=== PATIENT | male | born 1960 | race Caucasian/White ===

== ENCOUNTER 2018-11-29 18:18 | Inpatient (IN) | payer OTHER ==
[~2018-11-29] VITALS: Ht 170.2 cm; Wt 76.6 kg
[2018-11-29 18:45] LABS: GLUCOSE,POINT OF CARE 256 MG/DL (70-110)
[2018-11-29] MEDS ORDERED: DSSL PO (18:48)
[2018-11-29] MEDS ORDERED: AMLO2.5T4 PO (18:48)
[2018-11-29 19:43] LABS: EOSINOPHILS % (AUTO) 4.7 % (1.0-6.0); HEMATOCRIT 37.1 % (41-53); LYMPHOCYTES # (AUTO) 0.7 K/uL (1.0-4.8); LYMPHOCYTES % (AUTO) 7.7 % (22.0-44.0); MEAN CORPUSCULAR HEMOGLOBIN 31.2 pg (26.0-34.0); MEAN CORPUSCULAR HGB CONC 32.3 G/dL (31.0-37.0); MEAN CORPUSCULAR VOLUME 97 fL (80-100); MONOCYTES # (AUTO) 0.8 K/uL (0.1-1.0); MONOCYTES % (AUTO) 8.1 % (2.0-9.0); NEUTROPHILS # (AUTO) 7.4 K/uL (1.8-7.7); NEUTROPHILS % (AUTO) 78.5 % (40.0-70.0); PLATELET COUNT (AUTO) 315 K/uL (150-450); RED BLOOD CELL COUNT(AUTO) 3.84 MIL/uL (4.50-5.90); RED CELL DISTRIBUTION WIDTH 14.6 % (11.5-14.5)
[2018-11-29 19:45] LABS: APPEARANCE,URINE CLEAR (CLEAR); BILIRUBIN,URINE NEGATIVE (NEGATIVE); GLUCOSE, URINE (UA) 250 mg/dL (NEGATIVE); KETONES,URINE NEGATIVE (NEGATIVE); LEUKOCYTE ESTERASE ,URINE NEGATIVE (NEGATIVE); NITRATE,URINE NEGATIVE (NEGATIVE); OCCULT BLOOD,URINE SMALL (NEGATIVE); PROTEIN,URINE SEE CONFIRM (NEGATIVE); UROBILINOGEN,URINE 0.2 mg/dL (<=1.0)
[2018-11-29 19:54] LABS: ANION GAP 7 mmol/L (8-16); CALCIUM, TOTAL 9.7 mg/dL (8.8-10.5); CARBON DIOXIDE 35 mmol/L (22-29); CHLORIDE 95 mmol/L (98-107); CREATININE 9.67 mg/dL (0.60-1.30); GLOMERULAR FILTR. RATE CALC 6 mL/min (>60); GLUCOSE,RANDOM 224 mg/dL (70-110); POTASSIUM 3.4 mmol/L (3.5-5.1); SODIUM SERUM 137 mmol/L (136-145); UREA NITROGEN, BLOOD 41 mg/dL (7-18)
[2018-11-29 20:00] LABS: B-TYPE NATRIURETIC PEPTIDE > 5000 pg/mL (0-100)
[2018-11-29 20:06] LABS: ALANINE AMINOTRANSFERASE 39 U/L (12-78); ALBUMIN 3.7 g/dL (3.4-5.0); ALKALINE PHOSPHATASE 91 U/L (46-116); ASPARTATE AMINOTRANSFERASE 26 U/L (15-37); BILIRUBIN,TOTAL 0.7 mg/dL (0.1-1.0); TOTAL PROTEIN, SERUM 7.6 g/dL (6.4-8.2)
[2018-11-29 20:14] LABS: SULFOSALICYLIC ACID,URINE 4+ (Negative)
[2018-11-29 20:15] LABS: BACTERIA,URINE None Seen /HPF (None Seen); RBC,URINE 0-2 /HPF (0-2); SQUAMOUS EPITHELIAL CELL,UR Rare /LPF (None Seen); WBC,URINE 0-2 /HPF (0-5)
[2018-11-29] MEDS ORDERED: ACETAMINOPHEN 325 MG TABLET PO PRN ×2 (21:30→23:30)
[2018-11-29] MEDS ORDERED: ONDANSETRON HCL 4 MG/2 ML VIAL IVP PRN ×2 (21:30→23:30)
[2018-11-29] MEDS ORDERED: 0.9% SODIUM CHLORIDE 10 ML SYRINGE IVP PRN ×2 (21:30→23:30)
[2018-11-29] MEDS ORDERED: DEXTROSE 50%-WATER 25 GM/50 ML SYRINGE IVP PRN (23:30)
[2018-11-29] MEDS ORDERED: ZOLPIDEM TARTRATE 5 MG TABLET PO PRN (23:30)
[2018-11-30] VITALS (7 sets, daily range): BP systolic 145–160; BP diastolic 77–92
[2018-11-30 06:08] LABS: BASOPHILS % (AUTO) 1.3 % (0.0-2.0); EOSINOPHILS % (AUTO) 10.2 % (1.0-6.0); HEMATOCRIT 30.4 % (41-53); HEMOGLOBIN 10.4 g/dL (13.5-17.5); LYMPHOCYTES # (AUTO) 0.8 K/uL (1.0-4.8); LYMPHOCYTES % (AUTO) 11.6 % (22.0-44.0); MEAN CORPUSCULAR HEMOGLOBIN 32.4 pg (26.0-34.0); MEAN CORPUSCULAR VOLUME 95 fL (80-100); MONOCYTES # (AUTO) 0.6 K/uL (0.1-1.0); MONOCYTES % (AUTO) 8.8 % (2.0-9.0); NEUTROPHILS # (AUTO) 4.7 K/uL (1.8-7.7); NEUTROPHILS % (AUTO) 68.1 % (40.0-70.0); PLATELET COUNT (AUTO) 259 K/uL (150-450); RED CELL DISTRIBUTION WIDTH 14.5 % (11.5-14.5)
[2018-11-30 06:29] LABS: CREATININE 10.42 mg/dL (0.60-1.30); MAGNESIUM 2.6 mg/dL (1.80-2.40); PHOSPHORUS 6.5 mg/dL (2.5-4.9); POTASSIUM 3.5 mmol/L (3.5-5.1)
[2018-11-30 06:35] LABS: GLUCOMETER DEV NAME(LOC) 6N.2; GLUCOSE,POINT OF CARE 66 MG/DL (70-110)
[2018-11-30] MEDS: INSULIN LISPRO 100 UNITS/ML SQ PRN ×3 (06:58→18:01)
[2018-11-30 07:45] LABS: GLUCOMETER DEV NAME(LOC) 6N.2; GLUCOSE,POINT OF CARE 179 MG/DL (70-110)
[2018-11-30] MEDS ORDERED: AmLODIPine BESYLATE 2.5 MG TABLET PO SCH (09:00)
[2018-11-30] MEDS: PANTOPRAZOLE SODIUM 40 MG DR TABLET PO SCH (09:42)
[2018-11-30 12:30] LABS: GLUCOMETER DEV NAME(LOC) 6N.2; GLUCOSE,POINT OF CARE 156 MG/DL (70-110)
[2018-11-30] MEDS ORDERED: DSS100 PO (12:55)
[2018-11-30] MEDS: VITAMIN B COMP/VIT C/FOLIC ACID CAPSULE PO SCH (18:01)
[2018-11-30] MEDS: CALCIUM ACETATE 667 MG CAPSULE PO SCH (18:01)
[2018-11-30 18:12] LABS: GLUCOMETER DEV NAME(LOC) 6N.2; GLUCOSE,POINT OF CARE 92 MG/DL (70-110)
[2018-11-30 21:20] LABS: GLUCOMETER DEV NAME(LOC) 6N.2; GLUCOSE,POINT OF CARE 134 MG/DL (70-110)
[2018-12-01 05:05] VITALS: BP 148/79
[2018-12-01 07:25] VITALS: BP 155/84
[2018-12-01] MEDS: PANTOPRAZOLE SODIUM 40 MG DR TABLET PO SCH (07:52)
[2018-12-01] MEDS: VITAMIN B COMP/VIT C/FOLIC ACID CAPSULE PO SCH (07:52)
[2018-12-01] MEDS: CALCIUM ACETATE 667 MG CAPSULE PO SCH ×2 (07:52→11:57)
[2018-12-01] MEDS ORDERED: AmLODIPine BESYLATE 5 MG TABLET PO SCH (09:00)
[2018-12-01 11:08] VITALS: BP 161/86
[2018-12-01] MEDS ORDERED: CARVEDILOL 3.125 MG TABLET PO SCH (11:15)
[2018-12-01 11:41] LABS: GLUCOMETER DEV NAME(LOC) 6N.2; GLUCOSE,POINT OF CARE 147 MG/DL (70-110)
[2018-12-01 11:41] LABS: GLUCOMETER DEV NAME(LOC) 6N.2; GLUCOSE,POINT OF CARE 98 MG/DL (70-110)
[2018-12-01] MEDS: INSULIN LISPRO 100 UNITS/ML SQ PRN (11:45)
[2018-12-01 16:06] VITALS: BP 160/88
[2018-12-01] MEDS: SEVELAMER CARBONATE 800 MG TABLET PO SCH (17:43)
[2018-12-01] MEDS: SENNA 187 MG TABLET PO SCH ×2 (17:43→20:24)
[2018-12-01 18:01] LABS: GLUCOMETER DEV NAME(LOC) 6N.2; GLUCOSE,POINT OF CARE 86 MG/DL (70-110)
[2018-12-01 19:40] VITALS: BP 179/91
[2018-12-01] MEDS: CARVEDILOL 6.25 MG TABLET PO SCH (20:25)
[2018-12-01 23:45] VITALS: BP 154/83
[2018-12-02 04:00] VITALS: BP 183/95
[2018-12-02 05:36] VITALS: BP 168/81
[2018-12-02] MEDS: CARVEDILOL 6.25 MG TABLET PO SCH (05:43)
[2018-12-02 07:46] VITALS: BP 156/87
[2018-12-02] MEDS: VITAMIN B COMP/VIT C/FOLIC ACID CAPSULE PO SCH (08:34)
[2018-12-02] MEDS: PANTOPRAZOLE SODIUM 40 MG DR TABLET PO SCH (08:34)
[2018-12-02] MEDS: SENNA 187 MG TABLET PO SCH ×2 (08:35→21:42)
[2018-12-02] MEDS: SEVELAMER CARBONATE 800 MG TABLET PO SCH ×3 (08:36→17:32)
[2018-12-02] MEDS ORDERED: SODIUM CHLORIDE 0.9% 1,000 ML IV ONE (08:49)
[2018-12-02 15:41] VITALS: BP 159/81
[2018-12-02] MEDS: INSULIN LISPRO 100 UNITS/ML SQ PRN (17:34)
[2018-12-02 18:30] LABS: GLUCOMETER DEV NAME(LOC) 6N.2; GLUCOSE,POINT OF CARE 100 MG/DL (70-110)
[2018-12-02 18:30] LABS: GLUCOMETER DEV NAME(LOC) 6N.2; GLUCOSE,POINT OF CARE 127 MG/DL (70-110)
[2018-12-02 18:30] LABS: GLUCOMETER DEV NAME(LOC) 6N.2; GLUCOSE,POINT OF CARE 144 MG/DL (70-110)
[2018-12-02 19:56] VITALS: BP 156/84
[2018-12-02] MEDS: CARVEDILOL 12.5 MG TABLET PO SCH (21:42)
[2018-12-02] MEDS: AmLODIPine BESYLATE 5 MG TABLET PO SCH (21:42)
[2018-12-02 23:59] VITALS: BP 154/75
[2018-12-03 04:45] VITALS: BP 157/81
[2018-12-03 06:09] LABS: BASOPHILS % (AUTO) 1.8 % (0.0-2.0); EOSINOPHILS % (AUTO) 12.7 % (1.0-6.0); HEMOGLOBIN 10.6 g/dL (13.5-17.5); LYMPHOCYTES # (AUTO) 0.9 K/uL (1.0-4.8); LYMPHOCYTES % (AUTO) 11.8 % (22.0-44.0); MEAN CORPUSCULAR HEMOGLOBIN 31.7 pg (26.0-34.0); MEAN CORPUSCULAR VOLUME 96 fL (80-100); MONOCYTES # (AUTO) 0.7 K/uL (0.1-1.0); MONOCYTES % (AUTO) 9.2 % (2.0-9.0); NEUTROPHILS # (AUTO) 4.8 K/uL (1.8-7.7); NEUTROPHILS % (AUTO) 64.5 % (40.0-70.0); PLATELET COUNT (AUTO) 247 K/uL (150-450); RED BLOOD CELL COUNT(AUTO) 3.34 MIL/uL (4.50-5.90); RED CELL DISTRIBUTION WIDTH 14.5 % (11.5-14.5)
[2018-12-03 06:19] LABS: PROTHROMBIN TIME 10.7 SEC (9.4-11.6)
[2018-12-03 07:41] VITALS: BP 151/81
[2018-12-03] MEDS: SEVELAMER CARBONATE 800 MG TABLET PO SCH ×3 (08:21→17:44)
[2018-12-03] MEDS: VITAMIN B COMP/VIT C/FOLIC ACID CAPSULE PO SCH (08:21)
[2018-12-03] MEDS: PANTOPRAZOLE SODIUM 40 MG DR TABLET PO SCH (08:22)
[2018-12-03] MEDS: SENNA 187 MG TABLET PO SCH ×2 (08:22→20:39)
[2018-12-03] MEDS: CARVEDILOL 12.5 MG TABLET PO SCH ×2 (08:22→20:39)
[2018-12-03] MEDS: AmLODIPine BESYLATE 5 MG TABLET PO SCH ×2 (08:22→20:39)
[2018-12-03] MEDS: INSULIN LISPRO 100 UNITS/ML SQ PRN ×3 (12:07→20:57)
[2018-12-03] MEDS ORDERED: LIDOCAINE/PF 1% 30 ML VIAL ONE (13:15)
[2018-12-03] MEDS ORDERED: HEPARIN SODIUM 1000 UNITS/NS 500 ML ONE (13:16)
[2018-12-03] MEDS ORDERED: IOHEXOL 240 MG/ML 50 ML VIAL ONE ×2 (13:27→15:14)
[2018-12-03] MEDS ORDERED: FentaNYL CITRATE-PF 100 MCG/2 ML VIAL ONE (14:05)
[2018-12-03] MEDS ORDERED: MIDAZOLAM HCL 2 MG/2 ML VIAL ONE (14:06)
[2018-12-03 14:10] LABS: GLUCOMETER DEV NAME(LOC) 6N.1; GLUCOSE,POINT OF CARE 130 MG/DL (70-110)
[2018-12-03] MEDS ORDERED: LIDOCAINE/PF 1% 30 ML VIAL INJ ONE (15:05)
[2018-12-03] MEDS ORDERED: IOHEXOL 300 MG/ML 100 ML VIAL IVP ONE (15:30)
[2018-12-03 16:49] LABS: GLUCOMETER DEV NAME(LOC) 6N.2; GLUCOSE,POINT OF CARE 96 MG/DL (70-110)
[2018-12-03 16:50] LABS: GLUCOMETER DEV NAME(LOC) 6N.2; GLUCOSE,POINT OF CARE 88 MG/DL (70-110)
[2018-12-03 19:50] LABS: GLUCOMETER DEV NAME(LOC) 6N.1; GLUCOSE,POINT OF CARE 115 MG/DL (70-110)
[2018-12-03 19:58] VITALS: BP 150/76
[2018-12-03] MEDS: HydrALAZINE HCL 25 MG TABLET PO SCH (20:39)
[2018-12-03 20:50] LABS: GLUCOMETER DEV NAME(LOC) 6N.1; GLUCOSE,POINT OF CARE 214 MG/DL (70-110)
[2018-12-04 00:13] VITALS: BP 129/64
[2018-12-04 04:00] VITALS: BP 139/70
[2018-12-04 06:20] LABS: GLUCOMETER DEV NAME(LOC) 6N.1; GLUCOSE,POINT OF CARE 77 MG/DL (70-110)
[2018-12-04 07:15] VITALS: BP 155/78
[2018-12-04] MEDS: AmLODIPine BESYLATE 5 MG TABLET PO SCH ×2 (09:00→20:15)
[2018-12-04] MEDS: HydrALAZINE HCL 25 MG TABLET PO SCH ×2 (09:00→20:15)
[2018-12-04] MEDS: CARVEDILOL 12.5 MG TABLET PO SCH ×2 (09:00→20:15)
[2018-12-04] MEDS: SENNA 187 MG TABLET PO SCH ×2 (09:18→20:21)
[2018-12-04] MEDS: VITAMIN B COMP/VIT C/FOLIC ACID CAPSULE PO SCH (09:18)
[2018-12-04] MEDS: PANTOPRAZOLE SODIUM 40 MG DR TABLET PO SCH (09:18)
[2018-12-04] MEDS: SEVELAMER CARBONATE 800 MG TABLET PO SCH ×3 (09:18→17:48)
[2018-12-04 11:34] VITALS: BP 144/79
[2018-12-04] MEDS: INSULIN LISPRO 100 UNITS/ML SQ PRN ×2 (12:01→20:16)
[2018-12-04] MEDS ORDERED: SODIUM CHLORIDE 0.9% 2,000 ML IV ONE (12:03)
[2018-12-04 19:45] VITALS: BP 154/76
[2018-12-04 20:00] LABS: GLUCOMETER DEV NAME(LOC) 6N.1; GLUCOSE,POINT OF CARE 98 MG/DL (70-110)
[2018-12-04 20:00] LABS: GLUCOMETER DEV NAME(LOC) 6N.1; GLUCOSE,POINT OF CARE 172 MG/DL (70-110)
[2018-12-04 23:45] VITALS: BP 136/67
[2018-12-05 04:55] VITALS: BP 142/66
[2018-12-05 06:16] LABS: GLUCOMETER DEV NAME(LOC) 6N.1; GLUCOSE,POINT OF CARE 225 MG/DL (70-110)
[2018-12-05 06:16] LABS: GLUCOMETER DEV NAME(LOC) 6N.1; GLUCOSE,POINT OF CARE 82 MG/DL (70-110)
[2018-12-05 07:51] VITALS: BP 137/84
[2018-12-05] MEDS: CARVEDILOL 12.5 MG TABLET PO SCH (08:15)
[2018-12-05] MEDS: SEVELAMER CARBONATE 800 MG TABLET PO SCH (08:15)
[2018-12-05] MEDS: AmLODIPine BESYLATE 5 MG TABLET PO SCH (08:15)
[2018-12-05] MEDS: PANTOPRAZOLE SODIUM 40 MG DR TABLET PO SCH (08:15)
[2018-12-05] MEDS: VITAMIN B COMP/VIT C/FOLIC ACID CAPSULE PO SCH (08:15)
[2018-12-05] MEDS: HydrALAZINE HCL 25 MG TABLET PO SCH (08:15)
[2018-12-05] MEDS: SENNA 187 MG TABLET PO SCH (08:34)
[2018-12-05] MEDS ORDERED: AMLO5TAB9 PO (10:18)
[2018-12-05] MEDS ORDERED: CARV12 PO (10:18)
[2018-12-05] MEDS ORDERED: HYDR25TA84 PO (10:19)
[2018-12-05] MEDS ORDERED: SENN8.6T90 PO (10:20)
[2018-12-05] MEDS ORDERED: SEVEC800 PO (10:21)
[2018-12-05] MEDS ORDERED: FOLI1TAB61 PO (10:24)
[2018-12-05] MEDS ORDERED: GLIP5 PO (10:25)
== END 2018-12-05 10:50 | DRG 252 ==
LOC: EMS 18:21 → 6S 22:05
PROVIDERS: ADMIT Internal Medicine; ATTEND Internal Medicine
PROC: 5A1D70Z Performance of Urinary Filtration, Intermittent, Less than 6 Hours Per Day (ICD-10-PCS; principal; 2018-11-30)
PROC: 5A1D70Z Performance of Urinary Filtration, Intermittent, Less than 6 Hours Per Day (ICD-10-PCS; 2018-12-02)
PROC: 057Y3ZZ Dilation of Upper Vein, Percutaneous Approach (ICD-10-PCS; 2018-12-03)
PROC: B51W1ZZ Fluoroscopy of Dialysis Shunt/Fistula using Low Osmolar Contrast (ICD-10-PCS; 2018-12-03)
PROC: 5A1D70Z Performance of Urinary Filtration, Intermittent, Less than 6 Hours Per Day (ICD-10-PCS; 2018-12-04)
DX: T82.858A Stenosis of other vascular prosthetic devices, implants and grafts, initial encounter (principal); N18.6 End stage renal disease; I50.41 Acute combined systolic (congestive) and diastolic (congestive) heart failure; I13.2 Hypertensive heart and chronic kidney disease with heart failure and with stage 5 chronic kidney disease, or end stage renal disease; Y83.2 Surgical operation with anastomosis, bypass or graft as the cause of abnormal reaction of the patient, or of later complication, without mention of misadventure at the time of the procedure; E11.22 Type 2 diabetes mellitus with diabetic chronic kidney disease; D64.9 Anemia, unspecified; E83.39 Other disorders of phosphorus metabolism; Z99.2 Dependence on renal dialysis; Y92.098 Other place in other non-institutional residence as the place of occurrence of the external cause; Z83.3 Family history of diabetes mellitus; Z82.49 Family history of ischemic heart disease and other diseases of the circulatory system
CPT/HCPCS: 36870; 76000; 76937; 83735; 84100; 87081; 87340; 93005; 93306; J1644; J2250; J3010; J3490; J7030; Q9966